=== PATIENT | female | born 1980 | race Caucasian/White ===

== ENCOUNTER 2020-02-15 11:57 | Emergency (ER) | payer SELFPAY ==
[~2020-02-15] VITALS: Ht 152.4 cm; Wt 45.4 kg
[~2020-02-15 11:57] MED LIST: ALBU90OI INH; AZIT500 PO; CODGUAEL PO; RXCODGUASY PO
[2020-02-15] MEDS ORDERED: CEPH500 PO (13:20)
== END 2020-02-15 13:42 | disposition home or self-care (01) ==
LOC: ER 11:57
DX: L73.9 Follicular disorder, unspecified (principal); F17.210 Nicotine dependence, cigarettes, uncomplicated; Z88.8 Allergy status to other drugs, medicaments and biological substances; Z88.5 Allergy status to narcotic agent
CPT/HCPCS: 99282